=== PATIENT | male | born 1965 | race African-American/Black ===

== ENCOUNTER 2021-12-19 16:14 | Emergency (ER) | payer MEDICAID, OTHER ==
[~2021-12-19] VITALS: Ht 175.3 cm; Wt 100.0 kg
[2021-12-19] MEDS ORDERED: FLUORESCEIN SODIUM 1MG/STRIP EACHEYE ONE (17:15)
[2021-12-19] MEDS ORDERED: TETRACAINE 0.5% OPHTH DROPS 4ML EACHEYE ONE (17:15)
[2021-12-19] MEDS ORDERED: TETANUS, DIPHTHERIA, PERTUSSIS VAC/PF 0.5ML (>10YR OLD) IM ONE (17:30)
[2021-12-19] MEDS ORDERED: IBUPROFEN 400MG TABLET PO ONE (17:45)
[2021-12-19 17:49] VITALS: BP 150/88
[2021-12-19] MEDS ORDERED: LIDOCAINE HCL 1% 20ML VIAL (Pyxis) INJ INFIL ONE (21:15)
[2021-12-19] MEDS ORDERED: LIDOCAINE/EPINEPHR/TETRACAINE 3ML TP ONE (21:45)
[2021-12-19] MEDS ORDERED: LIDOCAINE/PRILOCAINE CREAM 5 GM TUBE TOP SCH (22:00)
== END 2021-12-20 00:15 | disposition home or self-care (01) ==
LOC: ER 16:14
DX: S05.32XA Ocular laceration without prolapse or loss of intraocular tissue, left eye, initial encounter (principal); X58.XXXA Exposure to other specified factors, initial encounter; Y93.89 Activity, other specified; Y92.89 Other specified places as the place of occurrence of the external cause; Y99.8 Other external cause status
CPT/HCPCS: 12011; 70486; 90471; 90715; 99284

== ENCOUNTER 2021-12-24 07:23 | Emergency (ER) | payer OTHER ==
[~2021-12-24] VITALS: Ht 172.7 cm; Wt 81.0 kg
[2021-12-24 07:31] VITALS: BP 169/97
== END 2021-12-24 10:26 | disposition home or self-care (01) ==
LOC: ER 07:36
DX: Z48.02 Encounter for removal of sutures (principal)
CPT/HCPCS: 99281